=== PATIENT | female | born 1955 | race Two or more races ===

== ENCOUNTER 2023-09-13 17:52 | Emergency (ER) | payer OTHER ==
[~2023-09-13] VITALS: Ht 160 cm; Wt 81.0 kg
[2023-09-13 18:48] LABS: Urine Bacteria None Seen /hpf (None Seen)
[2023-09-13 19:19] LABS: Urine Blood 3+ /uL (Negative); Urine Clarity Clear (Clear); Urine Color Light-Yellow (Yellow); Urine Mucus FEW (None Seen); Urine Protein, UAD Negative (Negative); Urine Specific Gravity 1.023 (1.001-1.035); Urine Urobilinogen Normal (Negative); Urine WBC 5 /hpf (0 - 5); Urine pH 5.5 (5.0-9.0)
[2023-09-13 19:23] LABS: Alanine Aminotransferase 19 U/L (7-40); Albumin 4.3 g/dL (3.2-4.8); Alkaline Phosphatase 109 U/L (46-116); Anion Gap 5 (5-15); Aspartate Aminotransferase 21 U/L (13-40); BUN/Creatinine Ratio 14.3 (10.0-20.0); Basophils # (auto) 0 10 ^3/uL (0-0.2); Basophils % (auto) 0.6 % (0.0-2.0); Bilirubin, Total 0.5 mg/dL (0.2-1.0); Blood Urea Nitrogen 12 mg/dL (9-23); Calcium 9.8 mg/dL (8.5-10.1); Carbon Dioxide 28 mmol/L (20-30); Chloride 108 mmol/L (98-107); Eosinophils # (auto) 0.2 10 ^3/uL (0-0.8); Eosinophils % (auto) 2.5 % (0.0-7.0); Glucose 129 mg/dL (74-106); Hematocrit 42.3 % (36.0-46.0); Hemoglobin 14.3 g/dL (12.2-16.2); Lymphocytes # (auto) 2.5 10 ^3/uL (0.4-5.4); Lymphocytes % (auto) 36.5 % (10.0-50.0); Mean Corpuscular Hgb Conc. 33.7 g/dL (32.0-36.0); Mean Corpuscular Volume 91.9 fL (80.0-100.0); Monocytes # (auto) 0.4 10 ^3/uL (0-1.3); Monocytes % (auto) 5.9 % (0.0-12.0); Neutrophils # (auto) 3.7 10 ^3/uL (1.6-8.6); Neutrophils % (auto) 54.5 % (37.0-80.0); Nucleated Red Blood Cells % 0.1 %; Potassium 3.4 mmol/L (3.5-5.1); Red Blood Cells 4.61 10^6/uL (4.0-5.20); Red Cell Distribution Width 13.7 % (11.8-14.3); Sodium 141 mmol/L (136-145); Total Protein 6.9 g/dL (5.7-8.2); White Blood Cell 6.8 10^3/uL (4.4-10.8)
[2023-09-13 19:44] VITALS: TEMP 97.9
[2023-09-13] MEDS: POTASSIUM EFFERVESENT TAB 25 MEQ PO ONE (19:50)
[2023-09-13] MEDS ORDERED: POTA-228 PO (20:03)
[2023-09-13 21:16] VITALS: BP 147/76; PULSE 68; RESP 18; O2SAT 97
== END 2023-09-13 21:17 | disposition home or self-care (01) ==
LOC: ER 17:52
DX: R31.9 Hematuria, unspecified (principal); E87.6 Hypokalemia; Z90.49 Acquired absence of other specified parts of digestive tract; Z87.442 Personal history of urinary calculi
CPT/HCPCS: 36415; 74176; 76856; 80053; 81001; 85025

== ENCOUNTER 2023-10-31 03:18 | Inpatient (IN) | payer OTHER ==
[~2023-10-31] VITALS: Ht 160 cm; Wt 87.2 kg
[~2023-10-31 03:18] MED LIST: POTA-228 PO
[2023-10-31] MEDS: KETOROLAC TROMETH 60MG/2ML VIAL IM ONE (03:46)
[2023-10-31] MEDS: ONDANSETRON ODT 4 MG TAB PO ONE (04:04)
[2023-10-31] MEDS: SODIUM CHLORIDE 0.9% 1,000 ML IV ONE (05:36)
[2023-10-31] MEDS: MORPHINE SULFATE 4 MG/ML SYR/VIAL IV ONE (05:45)
[2023-10-31 05:54] LABS: Basophils # (auto) 0 10 ^3/uL (0-0.2); Basophils % (auto) 0.3 % (0.0-2.0); Eosinophils # (auto) 0 10 ^3/uL (0-0.8); Eosinophils % (auto) 0.2 % (0.0-7.0); Hematocrit 42.7 % (36.0-46.0); Hemoglobin 14.5 g/dL (12.2-16.2); Lymphocytes # (auto) 1.1 10 ^3/uL (0.4-5.4); Lymphocytes % (auto) 9.4 % (10.0-50.0); Mean Corpuscular Hemoglobin 31.3 pg (28.0-32.0); Mean Corpuscular Hgb Conc. 34.1 g/dL (32.0-36.0); Mean Corpuscular Volume 91.9 fL (80.0-100.0); Monocytes # (auto) 0.6 10 ^3/uL (0-1.3); Monocytes % (auto) 5.4 % (0.0-12.0); Neutrophils # (auto) 9.5 10 ^3/uL (1.6-8.6); Neutrophils % (auto) 84.7 % (37.0-80.0); Red Blood Cells 4.64 10^6/uL (4.0-5.20); Red Cell Distribution Width 13.6 % (11.8-14.3); White Blood Cell 11.2 10^3/uL (4.4-10.8)
[2023-10-31 06:14] LABS: Alanine Aminotransferase 34 U/L (7-40); Albumin 4.3 g/dL (3.2-4.8); Alkaline Phosphatase 100 U/L (46-116); Anion Gap 6 (5-15); Aspartate Aminotransferase 23 U/L (13-40); BUN/Creatinine Ratio 13.7 (10.0-20.0); Bilirubin, Total 0.7 mg/dL (0.2-1.0); Blood Urea Nitrogen 14 mg/dL (9-23); Calcium 9.9 mg/dL (8.7-10.4); Carbon Dioxide 27 mmol/L (20-30); Chloride 109 mmol/L (98-107); Glucose 107 mg/dL (74-106); Potassium 4.5 mmol/L (3.5-5.1); Sodium 142 mmol/L (136-145)
[2023-10-31 06:15] LABS: Total Protein 7.1 g/dL (5.7-8.2)
[2023-10-31] MEDS: MAGNESIUM SULFATE 1GM/100ML 100 ML IV SCH (06:53)
[2023-10-31 07:46] LABS: Urine Bacteria FEW /hpf (None Seen); Urine Blood 3+ /uL (Negative); Urine Budding Yeast OCCASIONAL /hpf (None Seen); Urine Clarity Ex.Turbid (Clear); Urine Color Light-Orange (Yellow); Urine Mucus FEW (None Seen); Urine Protein, UAD 1+ (Negative); Urine Urobilinogen Normal (Negative); Urine WBC 35 /hpf (0 - 5); Urine pH 5.5 (5.0-9.0)
[2023-10-31 08:13] VITALS: PULSE 60; RESP 18; O2SAT 98
[2023-10-31] MEDS: MORPHINE SULFATE INJ 2 MG/ml SYRG IV ONE (09:05)
[2023-10-31] MEDS ORDERED: ONDANSETRON HCL 4 MG/2 ML VIAL IV PRN (10:15)
[2023-10-31] MEDS: SODIUM CHLORIDE 0.9% 1,000 ML IV SCH (10:15)
[2023-10-31 11:40] VITALS: BP 128/83; PULSE 58; RESP 17; TEMP 97.4; O2SAT 99
[2023-10-31 12:30] VITALS: BP 128/83; PULSE 56; RESP 17; TEMP 97.4; O2SAT 99
[2023-10-31 13:30] LABS: INR 1.07 (0.9-1.15); Partial Thromboplastin Time 26.4 SEC (24.5-34.5); Prothrombin Time 11.3 sec (9.3-11.8)
[2023-10-31] MEDS: cefTRIAXone 1GM/50ML D5W 50 ML IV ONE (15:10)
[2023-10-31] MEDS: TAMSULOSIN HYDROCHLORIDE 0.4 MG CAP PO ONE (15:12)
[2023-10-31 16:30] VITALS: BP 133/71; PULSE 59; RESP 18; TEMP 98.7; O2SAT 97
[2023-10-31] MEDS: TAMSULOSIN HYDROCHLORIDE 0.4 MG CAP PO SCH (18:00)
[2023-10-31 20:00] VITALS: PULSE 68; RESP 20; O2SAT 96
[2023-10-31] MEDS: KETOROLAC TROMETH 30 MG/ML 1ML VIAL IV PRN (20:40)
[2023-10-31 21:00] VITALS: BP 127/69; PULSE 74; RESP 19; TEMP 98.6; O2SAT 95
[2023-11-01] VITALS (9 sets, daily range): BP systolic 115–147; BP diastolic 60–83; PULSE 61–91; RESP 12–20; TEMP 97.4–97.9; O2SAT 96–98
[2023-11-01 06:42] LABS: Basophils # (auto) 0 10 ^3/uL (0-0.2); Basophils % (auto) 0.6 % (0.0-2.0); Eosinophils # (auto) 0.1 10 ^3/uL (0-0.8); Eosinophils % (auto) 2.5 % (0.0-7.0); Hemoglobin 13.2 g/dL (12.2-16.2); Lymphocytes # (auto) 1.6 10 ^3/uL (0.4-5.4); Lymphocytes % (auto) 31.5 % (10.0-50.0); Mean Corpuscular Hemoglobin 31.8 pg (28.0-32.0); Mean Corpuscular Hgb Conc. 34.7 g/dL (32.0-36.0); Mean Corpuscular Volume 91.8 fL (80.0-100.0); Monocytes # (auto) 0.3 10 ^3/uL (0-1.3); Monocytes % (auto) 6.7 % (0.0-12.0); Neutrophils % (auto) 58.7 % (37.0-80.0); Nucleated Red Blood Cells % 0.1 %; Red Blood Cells 4.14 10^6/uL (4.0-5.20); Red Cell Distribution Width 13.5 % (11.8-14.3); White Blood Cell 5.2 10^3/uL (4.4-10.8)
[2023-11-01 06:56] LABS: Alanine Aminotransferase 26 U/L (7-40); Albumin 3.5 g/dL (3.2-4.8); Alkaline Phosphatase 80 U/L (46-116); Anion Gap 6 (5-15); Aspartate Aminotransferase 18 U/L (13-40); BUN/Creatinine Ratio 16.2 (10.0-20.0); Blood Urea Nitrogen 11 mg/dL (9-23); Calcium 8.7 mg/dL (8.5-10.1); Carbon Dioxide 24 mmol/L (20-30); Chloride 111 mmol/L (98-107); Glucose 94 mg/dL (74-106); Sodium 141 mmol/L (136-145)
[2023-11-01 06:57] LABS: Bilirubin, Total 0.8 mg/dL (0.2-1.0); Total Protein 5.7 g/dL (5.7-8.2)
[2023-11-01] MEDS: cefTRIAXone 1GM/50ML D5W 50 ML IV SCH (09:14)
[2023-11-01] MEDS: ENOXAPARIN SOD 40 MG/0.4 ML SYRINGE SC SCH (09:14)
[2023-11-01] MEDS: fentaNYL CITRATE 100 MCG/2 ML VL ONE (12:47)
[2023-11-01] MEDS: LIDOCAINE 2%HCL (LOCAL ANESTH.) INJ 20ML MDV ONE (12:47)
[2023-11-01] MEDS: MIDAZOLAM HCL 2MG/2ML 2ml VIAL (1mg/ml) ONE (12:48)
[2023-11-01] MEDS: IODIXANOL 320MG/ML 100ML BTL IV ONE (13:03)
[2023-11-01] MEDS: ACETAMINOPHEN 325 MG TAB PO PRN (14:04)
[2023-11-01] MEDS ORDERED: ZOLP5TAB5 PO (16:02)
[2023-11-01] MEDS ORDERED: ATOR10TA PO (16:02)
[2023-11-01] MEDS ORDERED: PANT40T PO (16:02)
[2023-11-01] MEDS: HYDROcodone-ACET 5/325MG TAB PO PRN (20:37)
[2023-11-02 01:00] VITALS: BP 119/66; PULSE 67; RESP 19; TEMP 97.9; O2SAT 96
[2023-11-02 05:00] VITALS: BP 141/74; PULSE 57; RESP 19; TEMP 97.5; O2SAT 97
[2023-11-02 09:00] VITALS: BP 123/66; PULSE 78; RESP 19; TEMP 98.2; O2SAT 93
[2023-11-02 13:00] VITALS: BP 128/65; PULSE 83; RESP 19; TEMP 98.1; O2SAT 98
[2023-11-02] MEDS ORDERED: CIPR-273 PO (13:33)
[2023-11-02] MEDS ORDERED: HYDR-4902 PO (13:33)
[2023-11-02 15:33] VITALS: TEMP 36.7
== END 2023-11-02 16:00 | disposition home or self-care (01) | DRG 694 ==
LOC: ER 03:18 → OVERFLOW 10:11 → WEST WING 11:48
PROVIDERS: ADMIT Nurse Practitioner Family; ATTEND Nurse Practitioner Family
PROC: 0T9330Z Drainage of Right Kidney Pelvis with Drainage Device, Percutaneous Approach (ICD-10-PCS; principal; 2023-11-01)
PROC: BT111ZZ Fluoroscopy of Right Kidney using Low Osmolar Contrast (ICD-10-PCS; 2023-11-01)
DX: N13.2 Hydronephrosis with renal and ureteral calculous obstruction (principal); D72.829 Elevated white blood cell count, unspecified; E66.01 Morbid (severe) obesity due to excess calories; E87.6 Hypokalemia; Z87.891 Personal history of nicotine dependence; Z68.34 Body mass index [BMI] 34.0-34.9, adult; Z79.899 Other long term (current) drug therapy
CPT/HCPCS: 36415; 50430; 74176; 74425; 76775; 76942; 80053; 81001; 85025; 85610; 85730; 87086; 93005; 96365; 96366; 96367; 96372; 96375; 99152; G0378; J1885; J2250; Q0162; Q9967